=== PATIENT | male | born 2000 | race Two or more races ===

== ENCOUNTER → 2025-04-03 | Outpatient (CLI) | payer MEDICARE, SELFPAY ==
--- NOTE | 2025-04-03 10:25 | XR_ITS ---
Examination: Wrist, left 3 views Technique: Wrist AP, oblique, lateral 3 views Date and time of exam: April 03, 2025 1107 hours INDICATIONS: Injury to the wrist 2020 with persistent wrist pain. FINDINGS: Mild to moderate osteopenia No fracture or dislocation No cortical bone destruction 2.6 mm sclerotic density in the capitate IMPRESSION: Mild to moderate osteopenia No fracture
--- NOTE | 2025-04-03 10:25 | XR_ITS ---
Examination: Hand, left 3 views Technique: Hand AP, oblique, lateral 3 views Date and time of exam: April 03, 2025 1107 hours INDICATIONS: Injury to the hand 2020 with persistent weakness FINDINGS: Mild juxta-articular bone demineralization No fracture No cortical bone destruction No opaque foreign body IMPRESSION: Reflex sympathetic dystrophy pattern
--- NOTE | 2025-04-03 10:25 | XR_ITS ---
Examination: Left elbow 3 views Technique: Elbow AP, oblique, lateral 3 views Exam date and time: April 03, 2025 1107 hours INDICATIONS: Right elbow pain and weakness in the 2020 FINDINGS: No fracture or dislocation No elbow effusion IMPRESSION: No fracture or dislocation No significant arthritic change.
== END | disposition home or self-care (01) ==
PROVIDERS: PCP Family Medicine; Referring Provider Nurse Practitioner Gerontology; Visit Provider Nurse Practitioner Gerontology
DX: G90.512 Complex regional pain syndrome I of left upper limb (principal); M85.88 Other specified disorders of bone density and structure, other site
CPT/HCPCS: 73080; 73110; 73130